=== PATIENT | female | born 1950 | race Caucasian/White ===

== ENCOUNTER 2023-02-26 16:23 | Emergency (ER) | payer MEDICARE, SELFPAY ==
--- NOTE | ~2023-02-26 | XR_ITS ---
EXAMINATION: XR chest 2V Exam Date/Time: 02/26/2023 17:15 CDT HISTORY: cp Comparison: 12/07/2008. RESULT: Lines, tubes, and devices: None. Lungs and pleura: Clear. Cardiomediastinal silhouette: Stable. Other: No acute osseous or upper abdominal finding. IMPRESSION: No acute cardiopulmonary process. Reviewed, dictated and finalized at location K.
--- NOTE | 2023-02-26 16:26 | ECG_ITS ---
Measurements Intervals [place] Rate: 70 P: 50 RI: 145 QRS: -14 QRSD: 91 T: 21 QT: 341 QTc: 369 Interpretive Statements SINUS RHYTHM LEFT ATRIAL ENLARGEMENT [-0.15mV P WAVE IN V1/V2] ANTEROSEPTAL MYOCARDIAL INFARCTION , OF INDETERMINATE AGE [40+ ms Q WAVE IN V1-V4] NO PREVIOUS ECG AVAILABLE FOR COMPARISON Electronically Signed On 02-27-2023 9:35:15 CDT by Yuli Jaramillo M.D.
[2023-02-26 16:30] VITALS: BP 196/77; PULSE 71; RESP 16; TEMP 36.1; O2SAT 99
[2023-02-26 16:43] LABS: Basophils Absolute Auto 0.1 K/mm3 (0.0-0.1); Basophils Percent Auto 0.5 % (0.2-1.2); Eosinophils Absolute Auto 0.2 K/mm3 (0-0.3); Eosinophils Percent Auto 1.2 % (0-4.4); Hematocrit 43.8 % (37.0-47.0); Hemoglobin 14.7 g/dL (12.0-15.0); Immature Granulocyte Absolute 0.04 K/mm3 (0.00-0.031); Immature Granulocyte Percent A 0.3 % (0-0.5); Lymphocytes Absolute Auto 3.75 K/mm3 (0.9-3.2); Lymphocytes Percent Auto 30.3 % (18.3-44.2); Mean Corpuscular HGB Conc 33.6 g/dl (32-36); Mean Corpuscular Hemoglobin 28.6 pg (26-34); Mean Corpuscular Volume 85.2 fl (80-100); Mean Platelet Volume 8.6 fl (7.4-10.4); Monocytes Absolute Auto 0.8 K/mm3 (0.1-0.6); Monocytes Percent Auto 6.8 % (2.6-8.5); Neutrophils Absolute Auto 7.5 K/mm3 (1.3-6.7); Neutrophils Percent Auto 60.9 % (45.5-73.1); Platelet Count Result 263 k/mm3 (150-375); Red Blood Count 5.14 M/mm3 (4.2-5.4); Red Cell Distribution Width 13.5 % (11.5-14.5); White Blood Count 12.4 K/mm3 (4.5-10.0)
[2023-02-26 16:55] LABS: Alanine Aminotransferase 32 U/L (6-35); Albumin Level 4.7 g/dL (3.5-5.1); Alkaline Phosphatase 70 U/L (38-126); Anion Gap 6 mmol/L (8-16); Aspartate Amino Transferase 34 U/L (14-36); Bilirubin,Total 0.7 mg/dL (0.2-1.3); Blood Urea Nitrogen 24 mg/dL (7-17); Calcium 9.7 mg/dL (8.4-10.2); Carbon Dioxide 35 mmol/L (22-30); Chloride 97 mmol/L (98-107); Estimated CRCL calculation 61 ml/min; Estimated Glomerular Filt Rate > 60; Glucose 108 mg/dL (65-110); Lipase 253 U/L (23-300); Potassium 5.3 mmol/L (3.4-5.0); Sodium 138 mmol/L (137-145)
[2023-02-26 16:59] LABS: Prothrombin Time 12.7 Seconds (11.1-14.7)
[2023-02-26 17:00] LABS: Partial Thromboplastin Time 28.3 SECONDS (22.3-36.8)
[2023-02-26 17:05] LABS: Troponin I < 0.012 ng/mL (0.000-0.034)
[2023-02-26 19:56] LABS: Troponin I < 0.012 ng/mL (0.000-0.034)
--- NOTE | 2023-02-26 20:43 | ED.GENADULT ---
HPI - General Adult General Chief complaint: Chest Pain Stated complaint: a fib Time Seen by Provider: 02/26/23 19:39 History of Present Illness HPI narrative: This is a 72-year-old female history of paroxysmal AFib presenting to ED with an episode of atrial fibrillation. Patient stated that she noticed immediately when she when AFib because she had palpitations, chest heaviness and felt uncomfortable. Lasted for 29 minutes before she resolved. She tracked with her Apple watch. 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 Patient has no other complaints at this time. Patient would like to be put back on Eliquis which she has been on the past. Related Data Allergies Allergy/AdvReac Type Severity Reaction Status Date / Time No Known Allergies Allergy Mild Unverified 12/07/08 03:50 [facility] Past Medical History Medical History (Updated 02/26/23 @ 20:59 by Indra Mares MD) HTN (hypertension) Meniere disease Paroxysmal A-fib Exam Narrative: APPEARANCE: No apparent distress. Head: atraumatic. EYES: EOMI, NOSE: Atraumatic NECK: Trachea midline RESPIRATORY: No increased rate of breathing , clear to auscultation CARDIOVASCULAR: RRR, no peripheral edema ABDOMINAL: Non-distended MUSCULOSKELETAl: No obvious deformities NEURO: Alert. Moving 4/4 extremities SKIN:: Warm, dry. Normal color PSYCHIATRIC: Normal affect Course Vital Signs Vital signs: Vital Signs Temperature 97.0 F L 02/26/23 16:30 Pulse Rate 71 02/26/23 16:30 Respiratory Rate 16 02/26/23 16:30 Blood Pressure 196/77 H 02/26/23 16:30 Pulse Oximetry 99 02/26/23 16:30 Oxygen Delivery Room Air 02/26/23 16:30 Temperature 97.0 F L 02/26/23 16:30 Pulse Rate 71 02/26/23 16:30 Respiratory Rate 16 02/26/23 16:30 Blood Pressure 196/77 H 02/26/23 16:30 Pulse Oximetry 99 02/26/23 16:30 Oxygen Delivery Room Air 02/26/23 16:30 Medical Decision Making [facility] Narrative Medical decision making narrative: -Presentation: 72-year-old female with history of paroxysmal AFib presented with a 29 minute episode of atrial fibrillation. She then auto converted back to normal sinus rhythm. 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 Patient has no reason to be hyperkalemia. This was repeated and had resolved to 4.0. Rest of laboratory studies within normal limits. Troponins negative x2. Chest x-ray is unremarkable. Independent EKG interpretation: Rhythm [sinus], Rate [70], [place] -[Leftward], [place] -[normal], QRS [narrow], QTC [normal], T waves -[negative for concerning inversions], ST Segments - [Negative for concerning elevations] Final interpretations: normal sinus rhythm nonspecific ST changes. Dx tests considered but not ordered: -Procedures: -Interventions: 5 mg Eliquis -Shared decision making / Disposition: patient was discharged with cardiology follow-up. She will be given a prescription for Eliquis. She will return emergency department if her condition is to worsen. -RX Vital Signs Vital Signs: Vital Signs Temperature 97.0 F L 02/26/23 16:30 Pulse Rate 71 02/26/23 16:30 Respiratory Rate 16 02/26/23 16:30 Blood Pressure 196/77 H 02/26/23 16:30 Pulse Oximetry 99 02/26/23 16:30 Oxygen Delivery Room Air 02/26/23 16:30 Temperature 97.0 F L 02/26/23 16:30 Pulse Rate 71 02/26/23 16:30 Respiratory Rate 16 02/26/23 16:30 Blood Pressure 196/77 H 02/26/23 16:30 Pulse Oximetry 99 02/26/23 16:30 Oxygen Delivery Room Air 02/26/23 16:30 Lab Data 02/26/23 16:3
[2023-02-26 20:44] LABS: Anion Gap 7 mmol/L (8-16); Blood Urea Nitrogen 25 mg/dL (7-17); Calcium 9.8 mg/dL (8.4-10.2); Carbon Dioxide 33 mmol/L (22-30); Chloride 98 mmol/L (98-107); Estimated CRCL calculation 68 ml/min; Estimated Glomerular Filt Rate > 60; Glucose 109 mg/dL (65-110); Sodium 138 mmol/L (137-145)
[2023-02-26 21:00] VITALS: BP 146/77; PULSE 61; RESP 16
[2023-02-26] MEDS: APIXABAN 5 MG TABLET PO (21:11)
== END 2023-02-26 21:30 | disposition home or self-care (01) ==
PROVIDERS: Emergency Medicine; Emergency Provider Emergency Medicine
DX: I48.91 Unspecified atrial fibrillation (principal); I10 Essential (primary) hypertension; H81.09 Meniere's disease, unspecified ear
CPT/HCPCS: 36415; 71046; 80048; 80053; 83690; 84484; 85025; 85610; 85730; 93005; 99284; A9270

== ENCOUNTER 2024-09-12 19:40 | Emergency (ER) | payer OTHER, MEDICARE, SELFPAY ==
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
[2024-09-12 19:40] VITALS: BP 148/68; PULSE 64; RESP 16; TEMP 36.3; O2SAT 99
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
[2024-09-12 22:07] VITALS: BP 138/72; PULSE 84; RESP 16; O2SAT 100
== END 2024-09-12 22:07 | disposition home or self-care (01) ==
PROVIDERS: Emergency Provider Physician Assistant
DX: S00.31XA Abrasion of nose, initial encounter (principal); I10 Essential (primary) hypertension; I48.0 Paroxysmal atrial fibrillation; V49.50XA Passenger injured in collision with unspecified motor vehicles in traffic accident, initial encounter; W22.12XA Striking against or struck by front passenger side automobile airbag, initial encounter
CPT/HCPCS: 70450; 72125; 99284

== ENCOUNTER 2025-10-29 18:33 | Emergency (ER) | payer MEDICARE, SELFPAY ==
[2025-10-29 18:50] VITALS: BP 158/72; PULSE 61; RESP 16; TEMP 36.6; O2SAT 98
--- NOTE | 2025-10-29 18:57 | ED_ITS ---
HPI - URI/Sore Throat General Chief Complaint: Upper Respiratory Infection Stated Complaint: Sore throat R side Time Seen by Provider: 10/29/25 18:57 Source: patient, RN notes reviewed and old records reviewed Mode of arrival: ambulatory Limitations: no limitations History of Present Illness HPI Narrative: 74-year-old female presents to the [facility] with complaints of right-sided throat pain for 72 hours. No treatment prior to arrival. Onset (ago): day(s) (3) Related Data Home Medications ?Medication ?Instructions ?Recorded ?Confirmed ?Last Taken ?Type amlodipine 2.5 mg tablet mg 10/29/25 Unknown History rosuvastatin 10 mg tablet mg 10/29/25 Unknown History Allergies Allergy/AdvReac Type Severity Reaction Status Date / Time evolocumab (From Repatha Allergy Unknown Unknown Verified 10/29/25 18:47 Pushtronex) lisinopril Allergy Cough Verified 10/29/25 18:47 losartan Allergy Hypertensio Verified 10/29/25 18:47 n Review of Systems Review of Systems: All systems reviewed & are unremarkable except as noted in HPI and below Constitutional: Constitutional: Reports no additional constitutional complaints ENT: Reports as per HPI Cardiovascular: Cardiovascular: Reports no additional cardiovascular complaints, Denies chest pain and Denies dyspnea Respiratory: Respiratory: Reports no additional respiratory complaints, Denies chest congestion, Denies cough and Denies dyspnea Musculoskeletal: Musculoskeletal: Reports no additional musculoskeletal complaints Integumentary/Breasts: Skin/Breast: Reports system reviewed and no additional complaints, except as docu PMFSH Past Medical History Medical History Paroxysmal A-fib HTN (hypertension) Meniere disease Social History Social History Substance use: never Comments At the time of my signature, I reviewed and agree with the nursing past medical, surgical, social, and family history. There is no relevant family history pertinent to the patient complaint. Exam Const: General: cooperative, healthy appearing, comfortable, no acute distress, well developed, alert and well nourished Nutritional Appearance: well nourished Orientation/consciousness: patient oriented x3 Limitations: no limitations HENMT: Head: normal to inspection Ears: hearing grossly normal bilaterally, external ears normal, TM's normal bilaterally, EAC's normal, mastoids normal and no periauricular adenopathy Mouth: Yes Normal oral and palatal mucosa present, Yes lip normal, Yes tongue normal and Yes moist mucous membranes Throat: uvula midline, posterior oropharynx abnormal erythema; no cobblstoning, no edema, no exudates and no lacerations and postnasal drainage Eyes: General: appearance normal, both eyes and all related structures Alignment and Position: alignment normal Neck: Neck: normal visual inspection, full ROM, no lymphadenopathy and no meningeal signs Chest: Chest palpation & inspection: normal inspection of the chest Resp: Effort & Inspection: normal respiratory effort and able to speak in complete sentences Auscultation: clear to auscultation bilaterally, no crackles, no rales, no rhonchi and no wheezes Cardio: Rate: regular rate Skin: General skin exam: normal color and no rashes or lesions noted Neuro: General: patient oriented x3, gait normal, moves all extremities and no meningeal signs Cognition (Neuro): normal cognition Speech: normal speech Gait exam (Neuro): Normal gait present Extrem: General: normal to inspection, full ROM, capillary refill normal and normal gait Psych: Appearance: grossly normal and well kempt Mental Status: mental status grossly normal Speech and movement: Normal speech and movement present and Clear speech present Affect: normal affect Attitude: cooperative Course Course Level of Care: Express Care Visit Vital Signs Vital signs: Vital Signs Temperature 97.8 F 10/29/25 18:50 Pulse Rate 61 10/29/25 18:50 Respiratory Rate 16 10/29/25 18:50 Blood Pressure 158/72 H 10/29/25 18:50 Pulse Oximetry 98 10/29/25 18:50 Temperature 97.8 F 10/29/25 18:50 Pulse Rate 61 10/29/25 18:50 Respiratory Rate 16 10/29/25 18:50 Blood Pressure 158/72 H 10/29/25 18:50 Pulse Oximetry 98 10/29/25 18:50 reviewed MDM MDM Narrative Medical decision making narrative: Patient sitting in exam room. Patient is nontoxic, vitals stable except blood pressure mildly elevated. Patient does take medication for her blood pressure. Patient presents with a sore throat for 72 hours. Patient is strep positive. Patient is appropriate for outpatient treatment with Discharge instructions reviewed with patient, as well as provided in writing per nursing staff. The instructions also include specific and strict return/GO TO THE ER as well as f/u information. All questions have been answered, and the patient deny any further questions with discharge and discharge plan. Some parts of this dictation were generated by voice recognition software and may contain typographical and/or grammatical inaccuracies. Differential Diagnosis Differential Diagnosis: Differential diagnostic considerations for upper respiratory infection include upper respiratory infection, croup, otitis media, sinusitis, viral infection, bronchitis, influenza, pharyngitis, strep, uvulitis.? Lab Data Labs: Lab Results 10/29/25 Range/Units 18:56 POC Influenza A Ag Negative (Negative) POC Influenza B Ag Negative (Negative) POC SARS CoV-2 Ag Negative (Negative) POC Grp A Strep Screen Positive (Negative) Review Discharge Plan Discharge Clinical Impression: Strep pharyngitis Patient Disposition: Home Condition: Stable Instructions: Antibiotic Form, Strep Throat (ED) Additional Instructions: After 24-48 hours on antibiotics, Throw the toothbrush away, start using a new one. Please be sure to wash bed linens especially pillow cases. Repeat once you finish the antibiotics. Do not share drinks. Take Motrin alternating with Tylenol for pain and fever alternating every 4 hours. Increase fluids, avoid caffeine. Give plenty of water, juice, Gatorade, Pedialyte, ice pops in Jell-O Follow up with Primary provider if not getting better this week For new or worsening symptoms go directly to the emergency room Patient Language: Wallisian Prescriptions: New amoxicillin 500 mg tablet 500 mg PO Q12H Qty: 20 0RF No Action amlodipine 2.5 mg tablet rosuvastatin 10 mg tablet Eliquis 5 mg tablet 5 mg PO BID Qty: 60 0RF cyclobenzaprine 10 mg tablet 10 mg PO TID PRN (Reason: muscle spasm) Qty: 10 0RF Follow-up/Referrals: UNKNOWN,DOCTOR [Primary Care Provider] Time of Disposition: 19:04
[2025-10-29 18:58] LABS: EDCOVIDSCREEN Negative (Negative); EDINFLUASCREEN Negative (Negative); EDINFLUBSCREEN Negative (Negative); EDSTREPNEGPOS1 Positive (Negative)
== END 2025-10-29 19:06 | disposition home or self-care (01) ==
PROVIDERS: Emergency Provider Nurse Practitioner
DX: J02.0 Streptococcal pharyngitis (principal); I10 Essential (primary) hypertension; I48.0 Paroxysmal atrial fibrillation; Z20.822 Contact with and (suspected) exposure to COVID-19
CPT/HCPCS: 87426; 87804; 87880; 99213; G0463